=== PATIENT | female | born 1985 | race Caucasian/White ===

== ENCOUNTER 2021-06-11 16:23 | Emergency (ER) | payer BC ==
[~2021-06-11] VITALS: Ht 165 cm; Wt 151.0 kg
--- NOTE | 2021-06-11 16:44 | ED Upper Extremity ---
General Chief Complaint: Bite-Animal/Human/Insect Stated Complaint: L ARM DOG BITE Source: patient Exam Limitations: no limitations History of Present Illness Date Seen by Provider: Jun 11, 2021 Time Seen by Provider: 16:39 Initial Comments Patient is a right-handed female who presents with dog bite or injury to left forearm. Patient was breaking up her dogs from fighting just prior to ED arrival. Patient with 2 small puncture wounds with adjacent abrasions to the extensor surface of her left forearm. Bleeding is controlled, tetanus is up-to-date. 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 oz. kg; BMI Method: General Appearance: WD/WN, no apparent distress Elbow/Forearm: abrasions, soft tissue tenderness Neurologic/Psychiatric: alert Departure Communication (Admissions) Wounds cleaned and bandaged. Will prescribe antibiotics and antifungal medication. PCP follow-up as needed. Return precautions reviewed Impression Primary Impression: Dog bite Disposition: HOME, SELF-CARE Condition: Stable Departure-Patient Inst. Decision time for Depature: 16:45 Referrals: NO,LOCAL PHYSICIAN (PCP/Family) Primary Care Physician Patient Instructions: Animal Bites (DC) Add. Discharge Instructions: Please take antibiotics as directed and ibuprofen as needed for pain. You may take tramadol as needed for additional relief. Follow-up with your PCP if signs of infection. All discharge instructions reviewed with patient and/or family. Voiced understanding. Scripts Tramadol HCl (Tramadol HCl) 50 Mg Tablet 50 MG PO Q6H, #10 TAB Prov: ARTURO LUX DO 06/11/21 Fluconazole (Diflucan) 150 Mg Tablet 150 MG PO Q72H, #2 TAB Prov: ARTURO LUX DO 06/11/21 Amoxicillin/Potassium Clav (Augmentin Xr 1,000-62.5 Tab) 1 Each Tab.er.12h 1 EACH PO BID, #14 TAB Prov: ARTURO LUX DO 06/11/21 ARTURO LUX DO Jun 11, 2021 16:44
[2021-06-11] MEDS ORDERED: FLUC150T PO (16:47)
[2021-06-11] MEDS ORDERED: AMOX-356 PO (16:47)
[2021-06-11 16:48] VITALS: BP 193/84
[2021-06-11] MEDS ORDERED: TRAM50TA3 PO (16:48)
== END 2021-06-11 16:57 | disposition home or self-care (01) ==
LOC: ER FS 16:25
DX: S51.852A Open bite of left forearm, initial encounter (principal); Z72.0 Tobacco use; W54.0XXA Bitten by dog, initial encounter
CPT/HCPCS: 99283